=== PATIENT | female | born 1975 | race Caucasian/White ===

== ENCOUNTER 2017-03-16 16:20 | Emergency (ER) | payer OTHER ==
[~2017-03-16] VITALS: Ht 160 cm; Wt 56.7 kg
[~2017-03-16 16:20] MED LIST: B-COMPLEX WITH1 EAC1 PO; FISH OIL 1,0001 EAC5 PO; PREDNISONE10 MG PO; VISTARIL25 MG PO; [UNRECOGNIZED DRUG - OTHER]
[2017-03-16] MEDS ORDERED: INDOMETHACIN50 MG PO (17:52)
[2017-03-16] MEDS ORDERED: CYCLOBENZAPRINE5 MG PO (17:52)
== END 2017-03-16 18:08 | disposition home or self-care (01) ==
LOC: ED 16:20
DX: S03.02XA Dislocation of jaw, left side, initial encounter (principal); F17.200 Nicotine dependence, unspecified, uncomplicated; Z88.8 Allergy status to other drugs, medicaments and biological substances; Z79.52 Long term (current) use of systemic steroids; X58.XXXA Exposure to other specified factors, initial encounter
CPT/HCPCS: 70110; 99283

== ENCOUNTER 2022-07-24 00:07 | Emergency (ER) | payer SELFPAY ==
[~2022-07-24] VITALS: Ht 160 cm; Wt 63.0 kg
[~2022-07-24 00:07] MED LIST changes: +CYCLOBENZAPRINE5 MG PO; +INDOMETHACIN50 MG PO
== END 2022-07-24 02:25 | disposition home or self-care (01) ==
LOC: ED 00:07
DX: U07.1 COVID-19 (principal); F17.200 Nicotine dependence, unspecified, uncomplicated; Z88.8 Allergy status to other drugs, medicaments and biological substances
CPT/HCPCS: 81001; 87088; 87502; 99283; A9270; C9803; U0003